=== PATIENT | male | born 1955 | race Caucasian/White ===

== ENCOUNTER 2017-02-05 14:14 | Observation (INO) ==
--- NOTE | 2017-02-05 14:52 | Emergency Department Note ---
Disposition Clinical Impression: CLL (chronic lymphocytic leukemia), Temporal arteritis Headache Qualifiers: Headache type: unspecified Headache chronicity pattern: acute headache Intractability: not intractable Qualified Code(s): R51 - Headache Disposition: Admitted As Inpatient Condition: Good Time of Disposition: 18:04 Headache HPI - General Chief Complaint: ED Headache Stated Complaint: right sided facial and arm pain Time Seen by Provider: 02/05/17 14:40 Limitations: no limitations Nursing Notes Reviewed: Yes Vital Signs Reviewed: Yes - History of Present Illness HPI Narrative: C1-year-old male comes in with 11 day history of right-sided head pain. He is tender over the right side of the parietal region. Says he seems to have some visual changes in the right eye. Pt Subjective Complaint: headache Onset (ago): day(s) Onset description: at rest Location: right Pain Severity: severe Pain Scale: 10 Quality: aching, throbbing Improves with: nothing Worsens with: none Context: occurred at rest Associated symptoms: Reports: none Treatments prior to arrival: none - Related Data Home Medications Medication Instructions Recorded Confirmed Amlodipine Besylate 10 mg PO DAILY 11/09/15 11/07/16 Atenolol [Tenormin] 50 mg PO DAILY 11/09/15 11/07/16 Citalopram [CeleXA] 1.5 tab PO DAILY 11/09/15 11/07/16 Lovastatin [Mevacor] 20 mg PO HS 11/09/15 11/07/16 Methylphenidate HCl [Ritalin] 10 mg PO DAILY 11/09/15 11/07/16 Tadalafil [Cialis] 20 mg PO Q24H 11/09/15 11/07/16 Tiotropium [Spiriva] 18 mcg IH DAILY 11/09/15 11/07/16 Zolpidem [Ambien] 10 mg PO HS PRN 11/09/15 11/07/16 ALPRAZolam [Xanax 1 MG Tablet] 1 mg PO BID 11/07/16 11/07/16 Aspirin/Calcium Carbonate/Mag 325 mg PO DAILY 11/07/16 11/07/16 [Aspirin Buffered 325 mg Tab] Previous Rx's Medication Instructions Recorded Nicotine Patch [Nicoderm] 1 each TD DAILY #30 patch.td24 11/07/16 Allergies Allergy/AdvReac Type Severity Reaction Status Date / Time Penicillins Allergy Unknown See Verified 05/09/16 10:07 Comments homeopathic substance Allergy Unknown See Uncoded 11/09/15 07:35 Comments Constitutional: Denies: fever, chills, weakness, weight change Eyes: Denies: eye pain, eye discharge, vision change ENT ED: Denies: ear pain, throat pain, dental pain, hearing loss, epistaxis, congestion, dysphagia Cardiovascular: Denies: chest pain, palpitations, dyspnea on exertion, edema, syncope Respiratory: Denies: cough, dyspnea, wheezes, hemoptysis, stridor Gastrointestinal: Denies: abdominal pain, nausea, vomiting, diarrhea, constipation, hematemesis, melena, hematochezia Genitourinary: Denies: urgency, dysuria, frequency, hematuria Musculoskeletal: Denies: back pain, neck pain, arthralgia, myalgia Integumentary: Denies: rash, abrasion, lesions Neurological: Reports: headache. Denies: weakness, numbness, paresthesias, confusion, abnormal gait, vertigo Psychiatric: Denies: anxiety, depression, suicidal thoughts, homicidal thoughts , auditory hallucinations, visual hallucinations Endocrine: Denies: fatigue Hematological/Lymphatic: Denies: easy bleeding, easy bruising Allergic/Immunologic: Denies: facial swelling, urticaria Headache PMH - Past Medical History Medical history: Reports: cancer, COPD, hypertension Psychiatric history: Reports: anxiety - Social History Smoking Status: Current every day smoker Alcohol use: Reports: rarely Drug use: Reports: none Physical Exam - General Limitations: no limitations General appearance: alert - Head Head exam: atraumatic, normocephalic, normal inspection, other (Tender over the right temporal artery region) - Eye Eye exam: Present: normal appearance, PERRL, EOMI, other (Normal confrontational visual marquez) - ENT ENT exam: normal exam, normal oropharynx, mucous membranes moist - Neck Neck exam: Present: normal inspection, full ROM, trachea midline - Chest Chest inspection: Present: normal inspection, symmetric chest wall rise - Respiratory Respiratory exam: Present: normal lung sounds bilaterally - Cardiovascular Cardiovascular exam: Present: regular rate, normal rhythm, normal heart sounds - Abdominal Exam Abdominal exam: Present: soft, Non-Tender. Absent: tenderness, distention, guarding, rebound, rigidity - Extremities Exam Extremities exam: Present: normal inspection, full ROM. Absent: tenderness, pedal edema - Expanded Lower Extremity Exam Neurovascular/Tendon exam: Absent: motor deficit, sensory deficit, tendon deficit Gait: observed and normal - Back Exam Back exam: Present: normal inspection, full ROM. Absent: tenderness - Neurological Exam Neurological exam: Present: alert, oriented X3 - Psychiatric Psychiatric exam: Present: normal affect, normal mood - Skin Skin exam: Present: warm, dry, intact, normal color Course - Reevaluation(s) Reevaluation #1: 61-year-old comes in with right-sided head pain and tenderness of the right scalp. A CTA with and without was negative. The rate is slightly elevated at 11. Time: 17:00 - Consultations Consultation #1: Discussed with , Solu-Medrol 1 g IV and obtain a CT of the orbits, admit Time: 17:15 Consultation #2: Discussed with Dr. Richards, admit Time: 18:04 Vital Signs Temperature 97.9 F 02/05/17 14:34 Pulse Rate 61 02/05/17 14:34 Respiratory Rate 14 02/05/17 14:34 Blood Pressure 143/84 02/05/17 14:34 O2 Sat by Pulse Oximetry 96 02/05/17 14:34 Temperature 97.9 F 02/05/17 14:34 Pulse Rate 61 02/05/17 14:34 Respiratory Rate 16 02/05/17 18:21 Blood Pressure 158/89 02/05/17 18:21 O2 Sat by Pulse Oximetry 96 02/05/17 14:34 Oxygen Delivery Oxygen Delivery Room Air Headache - Lab Data Lab results reviewed: Yes I reviewed the patient's lab results. Result diagrams: 02/05/17 14:54 02/05/17 14:54 Lab Results 02/05/17 02/05/17 02/05/17 Range/Units 14:54 14:54 14:54 WBC 44.9 H* (4.3-11.1) K/mcL RBC 5.05 (4.19-5.50) M/mcL Hgb 16.0 (12.9-16.9) g/dL Hct 45.9 (37.5-50.1) % MCV 90.9 (83.0-100.0) fL MCH 31.7 (28.0-33.3) pg MCHC 34.9 (31.6-35.5) g/dL RDW 13.4 (11.5-14.5) % Plt Count 145 (140-400) K/mcL MPV 10.7 (9.4-12.4) fL Immature Gran % 0.4 (0-4) % Seg Neutrophils % 18.3 % Lymphocytes % 78.2 % Monocytes % 1.7 % Eosinophils % 1.0 % Basophils % 0.4 % Neutrophils # 8.2 (1.6-8.9) K/mcL Lymphocytes # 35.1 H (0.6-4.6) K/mcL Monocytes # 0.8 (0.0-1.3) K/mcL Eosinophils # 0.5 (0.0-0.6) K/mcL Basophils # 0.2 (0.0-0.2) K/mcL Reactive Lymphocytes Present A (Not Present) Smudge Cells Present A (Not Present) Platelet Estimate Normal (Normal) ESR 11 H (0-10) mm/hr Sodium 143 (136-145) mEq/L Potassium 3.8 (3.5-4.5) mEq/L Chloride 106 (98-109) mEq/L Carbon Dioxide 28 (19-29) mEq/L BUN 16 (8-26) mg/dL Creatinine 1.09 (0.72-1.25) mg/dL Est GFR ( Amer) > 60 (> 60) Est GFR (Non-Af Amer) > 60 (> 60) BUN/Creatinine Ratio 15 (6-26) Glucose 112 H (70-99) mg/dL Calculated Osmolality 298 (280-300) Calcium 9.6 (8.6-10.8) mg/dL - Radiology Data Radiology results reviewed: Yes I reviewed the patient's radiology results. Angiography CT 02/05/17 14:48 IMPRESSION: Distal left GENERAL ADMINISTRATOR not well seen. Otherwise, no acute intracranial abnormality identified. Right temporal artery appears grossly within normal limits to the extent visualized. D/ / Chuy Chavarria MD / Chuy Chavarria MD Interpreting Provider: Chuy Chavarria MD Stroke Scale - Level of Consciousness LOC: Alert - LOC Questions LOC Questions: Answers both correctly - LOC Commands LOC Commands: Performs both correctly - Best Gaze Best Gaze: Normal - Visual Visual: No visual loss - Facial Palsy Facial Palsy: Normal - Motor Arms Motor Arm-Left: No drift for 10 seconds Motor Arm-Right: No drift for 10 seconds - Motor Legs Motor Leg-Left: No drift for 5 seconds Motor Leg-Right: No drift for 5 seconds - Limb Ataxia Limb Ataxia: Normal, No Ataxia - Sensory Sensory: Normal - Best Language Best Language: No aphasia - Dysarthria Dysarthria: Normal - Extinction and Inattention Extinction and Inattention: Normal - NIHSS Total Score NIHSS Total Score: 0
[2017-02-05] MEDS ORDERED: *HR* Promethazine 25 MG/ML VIAL IM ONE (14:55)
[2017-02-05 15:00] LABS: Monocytes % 1.7 %
[2017-02-05] MEDS ORDERED: *HR* HYDROmorphone (PF) 1 MG/ML SYRINGE IM ONE (15:00)
[2017-02-05 15:01] LABS: Basophils # 0.2 K/mcL (0.0-0.2); Basophils % 0.4 %; Eosinophils # 0.5 K/mcL (0.0-0.6); Hematocrit 45.9 % (37.5-50.1); Immature Granulocytes % 0.4 % (0-4); Lymphocytes # 35.1 K/mcL (0.6-4.6); Lymphocytes % 78.2 %; Mean Corpuscular HGB Conc 34.9 g/dL (31.6-35.5); Mean Corpuscular Hemoglobin 31.7 pg (28.0-33.3); Mean Corpuscular Volume 90.9 fL (83.0-100.0); Mean Platelet Volume 10.7 fL (9.4-12.4); Monocytes # 0.8 K/mcL (0.0-1.3); Platelet Count 145 K/mcL (140-400); Red Blood Count 5.05 M/mcL (4.19-5.50); Red Cell Distribution Width 13.4 % (11.5-14.5); Segmented Neutrophils % 18.3 %
[2017-02-05 15:02] LABS: Neutrophils # 8.2 K/mcL (1.6-8.9)
[2017-02-05 15:12] LABS: BUN/Creatinine Ratio 15 (6-26); Blood Urea Nitrogen 16 mg/dL (8-26); Calcium 9.6 mg/dL (8.6-10.8); Carbon Dioxide 28 mEq/L (19-29); Chloride 106 mEq/L (98-109); Glucose 112 mg/dL (70-99); Osmolality,Calculated 298 (280-300); Potassium 3.8 mEq/L (3.5-4.5); Sodium 143 mEq/L (136-145); eGFR For African Americans > 60 (> 60); eGFR For Non-African Americans > 60 (> 60)
[2017-02-05 15:27] LABS: Platelet Estimate Normal (Normal); Reactive Lymphocytes Present (Not Present); Smudge Cells Present (Not Present)
[2017-02-05] MEDS ORDERED: methylPREDNISolone 1,000 MG in 0.9 % Sodium Chloride 50 ML IVPB ONE (17:13)
--- NOTE | 2017-02-05 20:01 | Event Note ---
Date of Encounter: 02/05/17 Time of Encounter: 19:59 Patient seen and examined with medical information specialist. He presents with 11 days of headache. No prior history of headaches. Headache throbbing in the right frontal and temporal area. He also has tenderness on palpation in the temporal area. He denies any vision loss. ESR is 11. CT scan of the head and orbit are normal. Neurology has been contacted and recommended starting to patient on pulse steroids till ruling out temporal arthritis. No vision loss. He has been taking nonsteroidal anti-inflammatory drugs at home without improvement of his headache. He drinks 3 cups of coffee a day and has been doing so the past 11 days. No focal neurological deficits. Observation admission
[2017-02-05] MEDS ORDERED: Naloxone 0.4 MG/ML INJ IVP PRN (20:02)
--- NOTE | 2017-02-05 20:09 | Internal Med History&Physical ---
Date of Encounter: 02/05/17 Time of Encounter: 20:07 Assessment and Plan (1) Headache Current visit: Yes Status: Acute 61-year-old male Presents with chief complaint of headache on the right temporal /frontal side. Headache refractory to Tylenol and Rocephin denies hx of headaches Described as throbbing, tender to 10 with radiation to neck shoulder and right upper extremity. Reports decrease in right eye vision compared to left, pain with chewing especially on the right, diffuse muscle cramps ER contacted neurology as patient has symptoms of temporal arteritis and was given [address]. [address] angio head and ct orbit negative Plan: continue solumedrol 1000mg for 2 additional days and then taper down to 40mg daily XR cervical spine to rule out any acute pathology cardiac diet npo midnight CRP, HARRY Qualifiers: Headache type: unspecified Headache chronicity pattern: acute headache Intractability: not intractable Qualified Code(s): R51 - Headache (2) Temporal arteritis Current visit: Yes Status: Suspected As stated above, patient has multiple symptoms that correspond to temporal arteritis his ESR was not elevated however this does not rule out the disease. CRP is more specific He has already been given 1gm of solumedrol we will order additional dose for tomorrow and follow neurology recommendations for biopsy (3) CLL (chronic lymphocytic leukemia) Current visit: Yes Status: Chronic hx of CLL followed by [facility] oncology Currently patient is not on any treatment States she has chronic fatigue She shows white blood cell count of 44 (4) DVT prophylaxis Current visit: Yes Status: Acute heparin SQ (5) Anxiety and depression Current visit: Yes Status: Chronic stable continue celexa and xanax (6) CAD (coronary artery disease) Current visit: Yes Status: Acute hx of cAD denies cp will continue aspirin, atenolol, simvastatin Qualifiers: Coronary Disease-Associated Artery/Lesion type: [place] artery [place] vs. transplanted heart: [place] heart Associated angina: without angina Qualified Code(s): I25.10 - Atherosclerotic heart disease of [place] coronary artery without angina pectoris (7) Tobacco abuse Current visit: Yes Status: Acute current smoker 50pack year history educated on benifits of smoking cessation nicotine patch has hx of brother with lung cancer Internal Medicine - H&P: HPI Chief complaint: Headache Admitted From: Home Plans for Post Hospital Care: Home History of present illness: Mr. Grajeda is a 61 year old male with history of CLL, hypertension, COPD presents with chief complaint of right temporal headache of 11 days. Patient states he woke up with the headache which she described as throbbing, 10 out of 10 pain that radiates down to the right neck shoulder and right upper extremity and does not improve with Tylenol or ibuprofen. He reports new onset of tingling in the right fingertips. He denies history of headaches. He reports blurry vision in the right eye compared to left that is new, pain with chewing, chronic fatigue however since this has been present due to CLL, and diffuse muscle cramps. He denies any fevers, chills, syncope sore throat, runny nose, nausea, vomiting, chest pain, palpitations, shortness of breath, productive cough, abdominal pain, hematuria, dysuria, melena, hematochezia, numbness, unilateral weakness, slurred speech, difficulty walking, unsteadiness. Past Med Surg Social Fam HX - Past Medical History Medical history: cancer (CLL), COPD, hypertension Psychiatric history: anxiety - Past Surgical History Surgical History: knee replacement - Social History Smoking Status: Current every day smoker Smokeless Tobacco Status: No Alcohol use: occasionally Drug use: none - Family History Brother Living Status: Hx Family Cardiac Disorders: Yes Hx Family Cancer: Yes (Esophageal) Sister Living Status: Age at : 4 (Months) Hx Family Cancer: Yes (Leukemia) Father Hx Family Cardiac Disorders: Yes Hx Family Cancer: Yes (Renal cancer) Internal Medicine - H&P: Meds Amlodipine Besylate 10 mg PO DAILY 11/09/15 [History] Atenolol [Tenormin] 50 mg PO DAILY 11/09/15 [History] Citalopram [CeleXA] 1.5 tab PO DAILY 11/09/15 [History] Lovastatin [Mevacor] 20 mg PO HS 11/09/15 [History] Methylphenidate HCl [Ritalin] 10 mg PO DAILY 11/09/15 [History] Tadalafil [Cialis] 20 mg PO Q24H 11/09/15 [History] Tiotropium [Spiriva] 18 mcg IH DAILY 11/09/15 [History] Zolpidem [Ambien] 10 mg PO HS PRN 11/09/15 [History] ALPRAZolam [Xanax 1 MG Tablet] 1 mg PO BID 11/07/16 [History] Aspirin/Calcium Carbonate/Mag [Aspirin Buffered 325 mg Tab] 325 mg PO DAILY 02/16 [History] Nicotine Patch [Nicoderm] 1 each TD DAILY #30 patch.td24 11/07/16 [Rx] Allergies Penicillins Allergy (Unknown, Verified 05/09/16 10:07) See Comments unknown reaction homeopathic substance Allergy (Unknown, Uncoded 11/09/15 07:35) See Comments unknown reaction All Systems PM: A 10-system review of systems was performed and is negative for pertinent findings except as documented above in the HPI. - Constitutional Vitals: Temp Pulse Resp BP Pulse Ox 98.0 F 59 12 160/79 93 02/05/17 19:52 02/05/17 19:52 02/05/17 19:52 02/05/17 19:52 02/05/17 19:52 - Other Additional findings: General: Alert and oriented to place time and situation. Without distress HEENT: Head atraumatic, normocephalic, tenderness to palpation in the right temporal/frontal aspect. EOMI, PERRLA, neck nontender to palpation, absent Lymphadenopathy, Moist Mucous Membranes, Heart: Regular rate and rhythm with no murmur Lungs: Clear to auscultation bilaterally Abdomen: Soft nontender, nondistended positive bowel sounds Extremities: Absent pedal edema, Neuro: Cranial nerves II through XII intact, sensation equal bilaterally, strength upper 5/5 b/l and lower extremity 4/5 b/l, alert oriented 3 Vascular: Pedal and radial pulses 2 out of 4 Internal Med - H&P Results - Labs CBC & Chem 7: 02/05/17 14:54 02/05/17 14:54
[2017-02-05 20:34] LABS: C-Reactive Protein 6 mg/L (Less than 5)
[2017-02-05] MEDS ORDERED: *HR* HYDROcodone/Acet 5/325 mg TABLET PO PRN (21:58)
[2017-02-05] MEDS ORDERED: *HR* HYDROmorphone (PF) 1 MG/ML SYRINGE IVP PRN (21:58)
[2017-02-05] MEDS ORDERED: Acetaminophen 325 MG TABLET PO PRN (21:58)
[2017-02-05] MEDS: ALPRAZolam 1 MG TABLET PO SCH (22:03)
[2017-02-05] MEDS: *HR* Heparin 5,000 UNIT/ML VIAL SQ SCH (22:04)
[2017-02-06] MEDS: *HR* Heparin 5,000 UNIT/ML VIAL SQ SCH ×2 (03:52→12:39)
[2017-02-06] MEDS ORDERED: amLODIPine 5 MG TABLET PO SCH (09:00)
[2017-02-06] MEDS ORDERED: Tiotropium 18 MCG inhalation IH SCH (09:00)
[2017-02-06] MEDS ORDERED: Nicotine 21 MG PATCH.TD24 TD SCH (09:00)
[2017-02-06] MEDS ORDERED: Aspirin 81 MG TAB.CHEW PO SCH (09:00)
[2017-02-06] MEDS ORDERED: Methylphenidate HCl 10 MG TABLET PO SCH (09:00)
[2017-02-06] MEDS: ALPRAZolam 1 MG TABLET PO SCH (09:15)
[2017-02-06 13:24] LABS: Hemoglobin 15.3 g/dL (12.9-16.9); Mean Platelet Volume 10.9 fL (9.4-12.4)
[2017-02-06 13:26] LABS: Hematocrit 46.1 % (37.5-50.1); Mean Corpuscular HGB Conc 33.2 g/dL (31.6-35.5); Mean Corpuscular Hemoglobin 30.7 pg (28.0-33.3); Mean Corpuscular Volume 92.4 fL (83.0-100.0); Platelet Count 170 K/mcL (140-400); Red Blood Count 4.99 M/mcL (4.19-5.50); Red Cell Distribution Width 13.5 % (11.5-14.5)
--- NOTE | 2017-02-06 14:09 | Neurology - Consult Note ---
Date of Encounter: 02/06/17 Time of Encounter: 13:38 Assessment and Plan (1) Headache Current Visit: Yes Status: Acute Patient has developed acute onset of persistent headaches involving the right forehead, temporal region, skull and right back of head, neck and shoulder, described as stabbing in nature, persistent associated with allodynia to the right skull. With complaints of some blurry vision to the right eye. With ESR of 11, would not consider temporal arteritis. He responded to IV steroid therapy which is likely non-specific response and would suggest short course of oral steroid therapy for 10 days, starting with 60mg of prednison daily for few days and then rapid taper. he has no fever, no fatigue and jaw claudication and possible neurological conditions that can cause such type of presentation would be occipital neuralgia , or atypical cluster headaches. patient's CTA of brain was read as no significant pathology to explain his headaches. Would like to see him 2-3 weeks after discharge in neurology clinic. Patient should also see brassiere cup mold cutter after discharge to assess right eye blurry vision. Please call if any questions Qualifiers: Headache type: unspecified Headache chronicity pattern: acute headache Intractability: not intractable Qualified Code(s): R51 - Headache History of Present Illness Chief complaint: right headache HPI: Mr. Grajeda is a 61 year old male with PMH significant for CLL, hyperlipidemia , osteoarthritis, COPD, HTN, tobacco use who developed acute onset of severe right side headache, neck pain. Patient states that he developed the pain during sleep about 11 days ago. Describes a stabbing pain at the right forehead , right temporal region, right skull, right base of head, referring down to his right neck and even shoulder region. There is a tender spot at the right skull, forehead and temporal region. Went few days without going to ER and finally decided to go due to headaches not getting better. Describes some blurry vision as well. In the ER, blood work showed WBC if 44 and ESR of 11. Was recommended steroid 1000mg of solumedrol IVx1. Responded well and his headaches are getting better. No focal deficits. no fever, no nausea and no vomiting. CT/CT angio head wo/w con IMPRESSION: Distal left SODA DISPENSER not well seen. Otherwise, no acute intracranial abnormality identified. Right temporal artery appears grossly within normal limits to the extent visualized. Past Med Surg Social Fam HX - Past Medical History Medical history: cancer, COPD, hypertension Psychiatric history: anxiety - Past Surgical History Surgical History: knee replacement - Social History Smoking Status: Current every day smoker Packs per day: 1 Smokeless Tobacco Status: No Alcohol use: occasionally Drug use: none - Family History Brother Living Status: Hx Family Cardiac Disorders: Yes Hx Family Cancer: Yes (Esophageal) Sister Living Status: Age at : 4 (Months) Hx Family Cancer: Yes (Leukemia) Father Name: Crystal Grajeda Living Status: Age at : 73 Cause of : Stomach anyeurism Hx Family Cardiac Disorders: Yes (CHF) Hx Family Respiratory Disorders: No Hx Family Cancer: No Hx Family GI Disorders: Yes (Stomach Anyeurism) Hx Family Genitourinary Disorders: No Hx Family Endocrine Disorder: No Hx Family Musculoskeletal Disorders: No Hx Family Neuromuscular Disorders: No Hx Family Neurologic Disorders: Yes (Stroke) Hx Family HEENT Disorders: No Hx Family Autoimmune Disorders: No Hx Family Reproductive Disorders: No Hx Family Psychosocial Disorders: No Hx Family Medical Disorders: No Medications and Allergies Amlodipine Besylate 10 mg PO DAILY 11/09/15 [History] Atenolol [Tenormin] 50 mg PO DAILY 11/09/15 [History] Methylphenidate HCl [Ritalin] 10 mg PO DAILY 11/09/15 [History] Tiotropium [Spiriva] 18 mcg IH DAILY 11/09/15 [History] Zolpidem [Ambien] 10 mg PO HS PRN 11/09/15 [History] ALPRAZolam [Xanax 1 MG Tablet] 1 mg PO BID 11/07/16 [History] Aspirin/Calcium Carbonate/Mag [Aspirin Buffered 325 mg Tab] 325 mg PO DAILY 02/16 [History] Albuterol Sulfate [Proair Hfa] 2 puff IH Q6H PRN 02/06/17 [History] Allergies Penicillins Allergy (Unknown, Verified 05/09/16 10:07) See Comments unknown reaction homeopathic substance Allergy (Unknown, Uncoded 11/09/15 07:35) See Comments unknown reaction All Systems: A 10-system review of systems was performed and is negative for pertinent findings except as documented above in the HPI. Physical Examination - Vital Signs Vital Signs: Initial Vital Signs Temp Pulse Resp BP Pulse Ox 97.9 F 61 14 143/84 96 02/05/17 14:34 02/05/17 14:34 02/05/17 14:34 02/05/17 14:34 02/05/17 14:34 - Constitutional General appearance: comfortable - Neurologic Sensorimotor examination: intact Detailed motor examination: grossly full strength in all extremities Motor examination - right side: 55: deltoids, biceps, triceps, wrist flexion, wrist extension, deck mechanic, hip flexors, tibialis Anterior, quadriceps, toe extension (EHL), plantarflexion Motor examination - left side: 55: deltoids, biceps, triceps, wrist flexion, wrist extension, hip flexors, deck mechanic, quadriceps, tibialis Anterior, toe extension (EHL), plantarflexion Detailed sensory examination: intact Posture: other Reflex and gait examination: intact Reflexes: Biceps: 1+, Triceps: 1+, Brachioradialis: 1+, Patella: 1+, Achilles: 1 + Mental Status Examination: awake, alert, oriented to person, oriented to place, oriented to time, follows commands appropriately, answers questions appropriately, no agnosia, no aphasia, no aproxia Cranial nerve examination: PERRL, EOMI, visual marquez intact, corneal reflexes brisk symmetrically, sensory to face intact, mastication intact, no facial asymmetry is present, no dysarthria, hearing is intact symmetrically, soft palate elevates bilaterally upon phonation, gag reflex intact, flexes SCM and trapezius muscles symmetrically with full power, tongue protrudes midline, no atrophy or facial fasiculations present Results - Laboratory Findings CBC and BMP: 02/06/17 13:04 02/05/17 14:54 Abnormal lab findings: Abnormal lab results WBC 64.1 K/mcL (4.3-11.1) H* 02/06/17 13:04 Lymphocytes # 35.1 K/mcL (0.6-4.6) H 02/05/17 14:54 Reactive Lymphocytes Present (Not Present) A 02/05/17 14:54 Smudge Cells Present (Not Present) A 02/05/17 14:54 ESR 11 mm/hr (0-10) H 02/05/17 14:54 Glucose 112 mg/dL (70-99) H 02/05/17 14:54 C-Reactive Protein 6 mg/L (Less than 5) H 02/05/17 14:54 Consult Discharge Plan - Plan Referrals: Rigoberto Montelongo DO [Primary Care Provider] -
[2017-02-06 14:21] VITALS: BP 152/82
--- NOTE | 2017-02-06 15:13 | Internal Med Progress Note ---
<Byron Miller - Last Filed: 02/06/17 15:11> Date of Encounter: 02/06/17 Time of Encounter: 11:00 - Assessment and plan (1) Headache Status: Acute Assessment and plan: Patient reports 11 days of continuous R sided throbing temporal HERNANDEZ with radiations to R side of neck and R shoulder. Patient had some jaw pain with chewing and blurring of vision in R eye. No associated cluster or Migraine Sxs. ESR 11 CRP 6 CTA: showed: Distal left PRESS TENDER SMOKE SIGNAL not well seen. Otherwise, no acute intracranial abnormality identified. Right temporal artery appears grossly within normal limits to the extent visualized. CT orbit negative. XR cervical spine showed DJD. Patient given 1gm Solumedrol due to concern for temporal arteritis. Due to lack of significant elevation of inflamatory markers Neuro's suspicion for TA is low. No biopsy. Will send patient home on a steroid taper over 10 day starting with 60mg. With follow up with neurology withing 2-3 weeks. Patient should follow up with opthamology as well for blurry vision. Qualifiers: Headache type: unspecified Headache chronicity pattern: acute headache Intractability: not intractable Qualified Code(s): R51 - Headache (2) CLL (chronic lymphocytic leukemia) Status: Chronic Assessment and plan: Patient has CLL that is currently not treated. Patient had elevated WBC of 44.9 due to his CLL. His WBC gaby to 64.1 likely secodnary to steroid administration. COntinue to follow up with [facility] oncology. (3) Anxiety and depression Status: Chronic Assessment and plan: Stable. Continue home meds. (4) CAD (coronary artery disease) Status: Acute Assessment and plan: Stable. Continue home meds. Qualifiers: Coronary Disease-Associated Artery/Lesion type: [place] artery [place] vs. transplanted heart: [place] heart Associated angina: without angina Qualified Code(s): I25.10 - Atherosclerotic heart disease of [place] coronary artery without angina pectoris - Subjective Interval history: Patient reports improvement in his HERNANDEZ now just a dull ache. He does still endorse some blurry vision in R eye. Patient reprots resolution of jaw pain and denies N, V, D, runny nose. Patient reports neck shoulder pain is not movement related. - Constitutional Vitals: Temp Pulse Resp BP Pulse Ox 98.3 F 65 16 152/82 96 02/06/17 14:21 02/06/17 14:21 02/06/17 14:21 02/06/17 14:21 02/06/17 14:21 General appearance: Present: A&O X 3, no acute distress - Head Additional comments: mild tenderness to palpation over R temporal region - Eye Eye exam: Present: EOMI, PERRL, sclera anicteric - ENT ENT exam: Present: mucous membranes moist - Neck Neck exam general surgery: Present: supple. Absent: nuchal rigidity - Respiratory Respiratory exam: Present: CTAB. Absent: rales, rhonchi, wheezes - Cardiovascular Cardiovascular exam: Present: RRR, +S1, +S2. Absent: gallop, rubs, systolic murmur - GI/Abdominal GI/Abdominal exam: Present: normal bowel sounds, soft. Absent: tenderness - Extremities Exam Extremities exam: Absent: pedal edema - Neurological Exam Neurological exam: Present: alert, CN II-XII intact, oriented X3, no focal deficits. Absent: facial droop, speech deficit - Psychiatric Psychiatric exam: Present: normal affect, normal mood - Skin Skin exam: Present: dry, warm Internal Medicine: Result - Labs CBC & Chem 7: 02/06/17 13:04 02/05/17 14:54 Labs: Short CBC 02/06/17 Range/Units 13:04 WBC 64.1 H* (4.3-11.1) K/mcL Hgb 15.3 (12.9-16.9) g/dL Hct 46.1 (37.5-50.1) % Plt Count 170 (140-400) K/mcL - Impressions Impressions Cervical Spine X-Ray 02/05/17 20:23 IMPRESSION: 1. Multilevel degenerative disc and facet disease, greatest C5-C6 and C6-C7 D/ / Melchor Coronado MD / Melchor Coronado MD Interpreting Provider: Melchor Coronado MD Consult Discharge Plan - Plan Instructions: Prednisone (By mouth) Additional Instructions: Please follow up with your Primary Care Provider within one week. Please follow up with Neurology within the next 2-3 weeks. Please resume your home medications as they are prescribed. Please take your Steroid taper as prescribed. Take 60mg for the next 5 days starting on 02/07/17. On February 12 and please take 50mg, on February 14 and take 40mg, on February 16 and take 30mg, on February 18 and take 20mg, on February 20 and take 10mg. Then your steroid course is done. Please return to the hospital if you experience new or worsening symptoms. Referrals: Rigoberto Montelongo DO [Primary Care Provider] - 02/13/17 10:00 am Gaby Herndon MD [Partnered Physician] - 02/15/17 9:15 am Prescriptions: predniSONE [PredniSONE] See Taper PO DAILY #60 tablet <Shane Matute - Last Filed: 02/06/17 19:05> Date of Encounter: 02/06/17 - Constitutional Vitals: Temp Pulse Resp BP Pulse Ox 98.3 F 65 16 152/82 96 02/06/17 14:21 02/06/17 14:21 02/06/17 14:21 02/06/17 14:21 02/06/17 14:21 Internal Medicine: Result - Labs CBC & Chem 7: 02/06/17 13:04 02/05/17 14:54 Labs: Short CBC 02/06/17 Range/Units 13:04 WBC 64.1 H* (4.3-11.1) K/mcL Hgb 15.3 (12.9-16.9) g/dL Hct 46.1 (37.5-50.1) % Plt Count 170 (140-400) K/mcL Neutrophils # 21.8 H (1.6-8.9) K/mcL - Impressions Impressions Cervical Spine X-Ray 02/05/17 20:23 IMPRESSION: 1. Multilevel degenerative disc and facet disease, greatest C5-C6 and C6-C7 D/ / Melchor Coronado MD / Melchor Coronado MD Interpreting Provider: Melchor Coronado MD - Attending Attestation I examined this patient and my medical decision-making was reviewed with the Resident Physician, Dr. Miller. I agree with the documented findings, disposition and treatment plan as described except to the extent set forth below. I have independently obtained history and examined the patient and my findings are summarized below: Patient reports that he is severe right temporal headache has improved after he started IV steroids. On exam he is in no acute distress palpation of the right temporal area reproduces some of the pain. Plan: Transition to oral steroids and plan to discharge home with follow-up with PCP and neurology.
[2017-02-06 15:19] LABS: Lymphocytes # 41.7 K/mcL (0.6-4.6); Monocytes # 0.6 K/mcL (0.0-1.3); Neutrophils # 21.8 K/mcL (1.6-8.9); Platelet Estimate Normal (Normal); Smudge Cells Present (Not Present)
--- NOTE | 2017-02-06 16:04 | Discharge Summary ---
<Byron Miller - Last Filed: 02/06/17 17:13> Date of Encounter: 02/06/17 Time of Encounter: 16:36 - Discharge Diagnosis (1) Headache Priority: Primary Status: Acute Qualifiers: Headache type: unspecified Headache chronicity pattern: acute headache Intractability: not intractable Qualified Code(s): R51 - Headache (2) CLL (chronic lymphocytic leukemia) Priority: Secondary Status: Chronic (3) Anxiety and depression Priority: Secondary Status: Chronic (4) CAD (coronary artery disease) Priority: Secondary Status: Acute Qualifiers: Coronary Disease-Associated Artery/Lesion type: [place] artery [place] vs. transplanted heart: [place] heart Associated angina: without angina Qualified Code(s): I25.10 - Atherosclerotic heart disease of [place] coronary artery without angina pectoris (5) Temporal arteritis Priority: Secondary Status: Suspected Comments: Concern for temporal arteritis. Inflamatory markers make this less likely, but story is concerning. - Discharge Medications Prescriptions: predniSONE [PredniSONE] See Taper PO DAILY #60 tablet Home Medications: Amlodipine Besylate 10 mg PO DAILY 11/09/15 [History] Atenolol [Tenormin] 50 mg PO DAILY 11/09/15 [History] Methylphenidate HCl [Ritalin] 10 mg PO DAILY 11/09/15 [History] Tiotropium [Spiriva] 18 mcg IH DAILY 11/09/15 [History] Zolpidem [Ambien] 10 mg PO HS PRN 11/09/15 [History] ALPRAZolam [Xanax 1 MG Tablet] 1 mg PO BID 11/07/16 [History] Aspirin/Calcium Carbonate/Mag [Aspirin Buffered 325 mg Tab] 325 mg PO DAILY 02/16 [History] Albuterol Sulfate [Proair Hfa] 2 puff IH Q6H PRN 02/06/17 [History] Citalopram [CeleXA] 20 mg PO DAILY tab 02/06/17 [Rx] Nicotine Patch [Nicoderm] 21 mg TD DAILY 02/06/17 [Rx] Simvastatin [Zocor] 10 mg PO HS tab 02/06/17 [Rx] predniSONE [PredniSONE] See Taper PO DAILY #60 tablet 02/06/17 [Rx] Allergies/Adverse Reactions: Allergies Penicillins Allergy (Unknown, Verified 05/09/16 10:07) See Comments unknown reaction homeopathic substance Allergy (Unknown, Uncoded 11/09/15 07:35) See Comments unknown reaction Procedures/tests Complete & Pending: CTA Head: "MPRESSION: Distal left PRODUCTION FLOATER not well seen. Otherwise, no acute intracranial abnormality identified. Right temporal artery appears grossly within normal limits to the extent visualized." CT orbit: "IMPRESSION: No acute abnormality of the orbits." XR C-spine: "IMPRESSION: 1. Multilevel degenerative disc and facet disease, greatest C5-C6 and C6-C7" Date of admission: 02/05/17 18:15 Primary care physician: Sherri Moise Consults: Neurology Discharging clinician: Byron Miller Anticipated date of discharge: 02/06/17 - Patient Status Disposition: Home, Self-Care Condition: Good Functional capacity at discharge: independent ambulation Overall status at discharge: patient is progressing back to baseline - Discharge Instructions Instructions: Prednisone (By mouth) Follow Up With: Rigoberto Montelongo DO [Primary Care Provider] - 02/13/17 10:00 am Gaby Herndon MD [Partnered Physician] - 02/15/17 9:15 am Additional Instructions: Please follow up with your Primary Care Provider within one week. Please follow up with Neurology within the next 2-3 weeks. Please resume your home medications as they are prescribed. Please take your Steroid taper as prescribed. Take 60mg for the next 5 days starting on 02/07/17. On February 12 and please take 50mg, on February 14 and take 40mg, on February 16 and take 30mg, on February 18 and take 20mg, on February 20 and take 10mg. Then your steroid course is done. Please return to the hospital if you experience new or worsening symptoms. - Diet and Activity Activity: increase activity as tolerated, resume usual activities as tolerated Diet: advance to your usual diet Interval History: Patient reports improvement in his HERNANDEZ now just a dull ache. He does still endorse some blurry vision in R eye. Patient reprots resolution of jaw pain and denies N, V, D, runny nose. Patient reports neck shoulder pain is not movement related. Neurology saw patient and they have a low suspicion for Temporal artertiis. they recommend a steroid taper and d/c today with f/u in 2/3 weeks. Hospital course: Mr. Grajeda is a 61 year old male c PMHx of CLL, hypertension, COPD presents with chief complaint of right temporal headache of 11 days. Patient states he woke up with the headache which she described as throbbing, 10 out of 10 pain that radiates down to the right neck shoulder and right upper extremity. Patient also complained of pain with chewing and blurry vision in his right eye. A CTA of the head and CT of the orbit were performed that were unremarkable. ESR and CRP were only slightly elevated. Patient had a high WBC due to his CLL and his receiving steroids. Patient was given 1g solumederol in the ED over concerns of possible temporal areteris. Patient's HERNANDEZ improved after steroids and Neurology saw the patient in consult and does not believe this is temporal arteritis and did not feel he needed a biopsy. - Time Spent with Patient Total time spent providing and/or coordinating discharge services: - Constitutional Vitals: Temp Pulse Resp BP Pulse Ox 98.3 F 65 16 152/82 96 02/06/17 14:21 02/06/17 14:21 02/06/17 14:21 02/06/17 14:21 02/06/17 14:21 General appearance: Present: A&O X 3, no acute distress - Head Additional comments: mild tenderness to palpation right temporal region - Eye Eye exam: Present: EOMI, PERRL - ENT ENT exam: Present: mucous membranes moist - Neck Neck exam general surgery: Present: supple. Absent: nuchal rigidity - Respiratory Respiratory exam: Present: CTAB. Absent: rales, rhonchi, wheezes - Cardiovascular Cardiovascular exam: Present: RRR, +S1, +S2. Absent: gallop, rubs, systolic murmur - GI/Abdominal GI/Abdominal exam: Present: normal bowel sounds, soft. Absent: tenderness - Extremities Exam Extremities exam: Absent: pedal edema - Neurological Exam Neurological exam: Present: alert, CN II-XII intact, oriented X3, no focal deficits. Absent: facial droop, speech deficit - Psychiatric Psychiatric exam: Present: normal affect, normal mood - Skin Skin exam: Present: dry, warm <Shane Matute - Last Filed: 02/06/17 19:17> Date of Encounter: 02/06/17 Date of admission: 02/05/17 18:15 Primary care physician: Sherri Moise - Patient Status Functional capacity at discharge: independent ambulation Overall status at discharge: patient is progressing back to baseline Hospital course: Mr. Grajeda is a 61 year old male - Time Spent with Patient Total time spent providing and/or coordinating discharge services: - Constitutional Vitals: Temp Pulse Resp BP Pulse Ox 98.3 F 65 16 152/82 96 02/06/17 14:21 02/06/17 14:21 02/06/17 14:21 02/06/17 14:21 02/06/17 14:21 - Attending Attestation I examined this patient and my medical decision-making was reviewed with the Resident Physician, Dr. Miller. I agree with the documented findings, disposition and treatment plan as described except to the extent set forth below. I have independently obtained history and examined the patient and my findings are summarized below: Patient reports that he is severe right temporal headache has improved after he started IV steroids. On exam he is in no acute distress palpation of the right temporal area reproduces some of the pain. Plan: Transition to oral steroids and plan to discharge home with follow-up with PCP and neurology.
[2017-02-06] MEDS ORDERED: METHYLPREDNISOLONE IVPB ONE (17:00)
[2017-02-06] MEDS ORDERED: SODIUM CHLORIDE MINI 0.9% IVPB ONE (17:00)
[2017-02-08 08:36] LABS: ANA IgG by ELISA NONE DETECTED (None Detected)
== END 2017-02-06 17:41 | disposition home or self-care (01) ==
LOC: 3BNU 14:14 → EMEROO 14:14 → SUATTDRO 18:15 → 3BNU 19:20
PROVIDERS: ADMIT Hospitalist; ATTEND Internal Medicine